=== PATIENT | male | born 1995 | race Caucasian/White ===

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

== ENCOUNTER 2017-05-27 14:22 | Emergency (ER) | payer OTHER ==
[2017-05-27 14:28] VITALS: RESP 18; TEMP 97.9
--- NOTE | 2017-05-27 14:43 | EDPHY ---
H & P Time Seen by Provider: 05/27/17 14:37 HPI/ROS: CHIEF COMPLAINT: Left shoulder injury HISTORY OF PRESENT ILLNESS: Went off a jump today on skis at [place] [employer] [place] and fell on his left shoulder. The pain at the distal clavicle site which is worse with trying to touch is right shoulder with his left hand. No head injury or loss of consciousness or neck or back pain or abdominal pain. REVIEW OF SYSTEMS: No laceration PAST MEDICAL HISTORY: Negative General Appearance: Alert and conversant, cooperative. Alert, ambulatory, normal mental status. No midline spinal tenderness to palpation. He can lift his left arm up over his head unassisted. Normal left hand wrist forearm elbow and humerus. Medial 2/3 of the clavicle is nontender, he has tenderness at the left AC joint. Normal passive rotation range of motion of the left shoulder. Emergency Department course/MDM: Declined pain medication. Plan for x-ray, likely first-degree left AC separation if normal films. Smoking Status: Current some day smoker Constitutional: Initial Vital Signs Temperature (C) 36.6 C 05/27/17 14:26 Heart Rate 94 05/27/17 14:26 Respiratory Rate 18 05/27/17 14:26 Blood Pressure 114/78 05/27/17 14:26 O2 Sat (%) 93 05/27/17 14:26 O2 Delivery Mode Room Air Allergies/Adverse Reactions: No Known Allergies Allergy (Unverified 05/27/17 14:26) MDM/Departure - MDM Imaging Results: Imaging Impressions Shoulder X-Ray 05/27/17 14:41 Impression: Normal. If there is further clinical concern regarding the patient's shoulder pain, consider MR imaging. Imaging: I viewed and interpreted images myself ED Course/Re-evaluation: X-rays reviewed with the patient, declined pain medication, orthopedic follow- up. - Depart Disposition: Home, Routine, Self-Care Clinical Impression: Shoulder separation Qualifiers: Encounter type: initial encounter Laterality: left Qualified Code(s): S43.005A - Unspecified dislocation of left shoulder joint, initial encounter Condition: Good Instructions: Acromioclavicular Separation (ED) Additional Instructions: Activity as tolerated. Tylenol and/or ibuprofen as we discussed for pain. Ice to sore area 20 min at a time over the next [address] South, [facility] in 1 week if not improving. Referrals: Polo Leong MD [Primary Care Provider] - As per Instructions Jeremi South MD [Medical Doctor] - As per Instructions
[2017-05-27 15:07] VITALS: BP 119/65; PULSE 91; O2SAT 94
== END 2017-05-27 15:06 | disposition home or self-care (01) ==
DX: S43.005A Unspecified dislocation of left shoulder joint, initial encounter (principal); F17.200 Nicotine dependence, unspecified, uncomplicated; V00.321A Fall from snow-skis, initial encounter; Y99.8 Other external cause status; Y93.23 Activity, snow (alpine) (downhill) skiing, snowboarding, sledding, tobogganing and snow tubing

== ENCOUNTER 2018-03-18 09:43 | Emergency (ER) | payer OTHER ==
[2018-03-18] MEDS ORDERED: IBUPROFEN 600 MG TAB PO ONE (10:03)
--- NOTE | 2018-03-18 10:04 | EDPHY ---
General Time Seen by Provider: 03/18/18 09:59 Narrative: CHIEF COMPLAINT: Fall, wrist pain, "I totally broke my wrist" HISTORY OF PRESENT ILLNESS: Patient presents by private vehicle with complaints of left wrist pain and "I totally broke my wrist." States that he fell twice 1 week ago while skateboarding. He fell backwards, on outward stretched left hand. He felt a sudden onset of pain in the left wrist and base of the hand. Rated as severe when it happened. It has been moderate ever since with no improvement. Constant duration. Worse with palpation and movement. Some improvement at rest and nonweightbearing. Radiates down the fingers. No numbness or tingling. No weakness. No laceration or puncture. He bought his own wrist splint which has helped significantly. He is right-hand dominant. No other associated complaints or modifying factors. DOMINANT EXTREMITY: Right-hand dominant ESTABLISHED ORTHOPEDIST: None REVIEW OF SYSTEMS: Ten systems reviewed and are negative unless otherwise noted in the HPI PAST MEDICAL HISTORY: Attention deficit hyperactivity disorder. Recent strep pharyngitis PAST SURGICAL HISTORY: No recent surgical history SOCIAL HISTORY: Nonsmoker. Occasional marijuana use. [employer] architecture student. Originally from [place] FAMILY HISTORY: Noncontributory EXAMINATION: General Appearance: Alert, no distress HEENT: Normocephalic. Atraumatic. Pupils equal round and reactive with no nystagmus. Cardiovascular: Radial pulses are symmetric at 2+. There is good signs of perfusion to the left hand at each finger. Neurological: A&O, light and 2 point sensory symmetric, interossei and ship's engineer strength symmetric. Skin: Warm and dry, no rash. Mild ecchymosis at the base of the left hand and over the proximal wrist. No laceration or puncture. No cyanosis or pallor Extremities: Tenderness of the left wrist including the snuffbox. There is tenderness of the left thenar eminence the base of the 1st MCP joint. There is no bony tenderness of the forearm, left elbow or shoulder. Range of motion of the elbows symmetric without any pain with extension. Range of motion of the fingers and interossei symmetric. Psychiatric: Mood and affect normal DIFFERENTIAL DIAGNOSES: Including but not limited to sprain, strain, Colles fracture, ulnar styloid fracture, scaphoid injury MDM: 10:00 a.m. Acute injury to the left wrist 1 week ago with today being his 1st evaluation. He does have tenderness in the snuffbox with some surrounding swelling ecchymosis. He is neuro intact distally. There is no deformity. No tenderness in the mid forearm or radial head. No signs of compartment syndrome , osteomyelitis or DVT. X-ray of the wrist is ordered. I have added ibuprofen. 10:50 a.m. X-ray as read by me, without radiologist, reveals fracture of the scaphoid with distracted proximal pole. I have ordered an ortho glass thumb spica. Official interpretation pending. 10:55 a.m. Patient re-evaluated. Ortho glass thumb spica splint in place. He CMS intact distally. He has appointment on Friday at [facility] for this. He will keep this appointment. I stressed the importance of close follow -up as this is likely a surgical fracture. We discussed ED precautions, ice, elevation and pain medication as prescribed. We discussed nonweightbearing to the left wrist until seen by Orthopedics for definitive fixation. He is comfortable this plan. Discharged home stable condition. SUPERVISION: This patient was independently evaluated without direct involvement of or examination by the attending physician. - Diagnostics Imaging Results: Imaging Impressions Wrist X-Ray 03/18/18 09:50 Impression: Mildly displaced midclavicular fracture. - History Smoking Status: Former smoker - Objective Vital Signs: Initial Vital Signs Temperature (C) 98.4 F 03/18/18 09:47 Heart Rate 92 03/18/18 09:47 Respiratory Rate 16 03/18/18 09:47 Blood Pressure 152/95 H 03/18/18 09:47 O2 Sat (%) 94 03/18/18 09:47 O2 Delivery Mode Room Air Allergies/Adverse Reactions: No Known Allergies Allergy (Unverified 03/18/18 09:47) Home Medications: Medication Instructions Recorded Veddiee 03/18/18 oxyCODONE HCL/ACETAMINOPHEN 1 each PO Q4-6PRN PRN #11 tablet 03/18/18 [Percocet 5-325 mg Tablet] Medications Given: Discontinued Medications Ibuprofen (Motrin) 600 mg PO EDNOW ONE Stop: 03/18/18 10:04 Last Admin: 03/18/18 10:07 Dose: 600 mg Departure - Departure Disposition: Home, Routine, Self-Care Clinical Impression: Left wrist sprain Qualifiers: Encounter type: initial encounter Qualified Code(s): S63.502A - Unspecified sprain of left wrist, initial encounter Scaphoid fracture of wrist Qualifiers: Encounter type: initial encounter Scaphoid bone location: unspecified portion of scaphoid Fracture type: closed Fracture alignment: displaced Laterality: left Qualified Code(s): S62.002A - Unspecified fracture of navicular [scaphoid] bone of left wrist, initial encounter for closed fracture Condition: Good Instructions: Scaphoid Fracture (ED), Wrist Sprain (ED) Additional Instructions: 1. Strict nonweightbearing left wrist until seen by orthopedist for definitive care 2. Pain medication, ice and elevation as discussed as needed 3. Contact hand orthopedist for outpatient definitive care. 4. ED precautions as discussed Referrals: Polo Leong MD [Primary Care Provider] - As per Instructions Pollo Shannon MD [Medical Doctor] - As per Instructions Nelli Carmona MD [Medical Doctor] - As per Instructions Prescriptions: oxyCODONE HCL/ACETAMINOPHEN [Percocet 5-325 mg Tablet] 1 each PO Q4-6PRN PRN # 11 tablet PRN Reason: Pain, Breakthrough
[2018-03-18 11:03] VITALS: BP 132/75
== END 2018-03-18 11:04 | disposition home or self-care (01) ==
PROC: 2W3FX1Z Immobilization of Left Hand using Splint (ICD-10-PCS; principal; 2018-03-18)
DX: S62.022A Displaced fracture of middle third of navicular [scaphoid] bone of left wrist, initial encounter for closed fracture (principal); S63.502A Unspecified sprain of left wrist, initial encounter; V00.131A Fall from skateboard, initial encounter; Y93.51 Activity, roller skating (inline) and skateboarding; F90.9 Attention-deficit hyperactivity disorder, unspecified type; Z87.891 Personal history of nicotine dependence

== ENCOUNTER → 2018-06-02 | Outpatient (CLI) | payer OTHER | LOC: FIMAGING 12:40 | PROVIDERS: ATTEND Orthopaedic Surgery | DX: S62.002D Unspecified fracture of navicular [scaphoid] bone of left wrist, subsequent encounter for fracture with routine healing (principal) ==